=== PATIENT | female | born 1975 | race African-American/Black ===

== ENCOUNTER 2018-07-07 00:54 | Emergency (ER) | payer BC, OTHER ==
--- NOTE | 2018-07-07 02:10 | PDOC ---
History of Present Illness - General Stated Complaint: ABD PAIN Time Seen by Provider: 07/07/18 01:54 - History of Present Illness Initial Comments: 07/07/18 02:10 Patient eloped before evaluation. *DC/Admit/Observation/Transfer Diagnosis at time of Disposition: Eloped from emergency department - Discharge Dispostion Disposition: ELOPED - Referrals - Patient Instructions - Post Discharge Activity
== END 2018-07-07 02:18 | disposition left against medical advice (07) ==
LOC: JER 00:54
DX: Z53.21 Procedure and treatment not carried out due to patient leaving prior to being seen by health care provider (principal)
CPT/HCPCS: 99281-25